=== PATIENT | male | born 1970 | race Caucasian/White ===

== ENCOUNTER → 2016-07-21 | Outpatient (CLI) | payer BC ==
[~2016-07-21] MED LIST: FEXO5TAB2 PO; FLUT110A INH; HYDR-5688 PO; MOME50SP5; MULT-506 PO
--- NOTE | 2016-07-21 12:02 | DIAGNOSTIC IMAGING REPORT ---
LEFT RIBS UNILATERAL WITH PA CHEST CLINICAL HISTORY: R07.89 Chest wall painD16.9 Chondroma RAD Left pain COMPARISON STUDY: CT chest dated 11/29/2013 FINDINGS: Unchanged healed fracture left seventh rib. Prior resection left eighth and ninth ribs. No acute bony abnormality. Lungs are considered clear. IMPRESSION: Stable evaluation of left ribs compared to the prior chest CT evaluation of 11/29/2013. No new or interval finding. Electronically signed by: Russell Cannon M.D. 07/21/2016 12:01 PM Dictated Date/Time: 07/21/2016 11:56 AM
== END | disposition home or self-care (01) ==
LOC: C.RAD1850 10:57
PROVIDERS: ATTEND Nurse Practitioner Family
DX: D16.9 Benign neoplasm of bone and articular cartilage, unspecified (principal); R07.89 Other chest pain

== ENCOUNTER 2024-06-03 04:52 | Inpatient (IN) ==
--- NOTE | 2024-06-03 05:14 | Emergency Department Note ---
History of Present Illness General Chief complaint: Shortness of Breath/Dyspnea Stated complaint: DIAGNOSED WITH PNEUMONIA ON MONDAY,SOB,WHEEZING Time Seen by Provider: 06/03/24 05:06 History of Present Illness Maximum Pain Intensity: 8 This 53-year-old male that smokes presents ER for worsening cold symptoms and shortness of breath who was diagnosed with pneumonia 1 week ago by the PCP. He was originally placed on Zithromax and switched to cefpodoxime and prednisone. Patient states his breathing is getting worse which prompted him to come the ER. No documented temperature. Patient denies abdominal pain, vomiting, diarrhea, history of heart failure. Home Medications Medication Instructions Recorded Confirmed Type multivitamin (Daily Multi-Vitamin 1 tab PO DAILY 08/10/18 05/29/24 History tablet) fexofenadine 180 mg tablet 180 mg PO DAILY Allergic Rhinitis 06/03/20 05/29/24 Rx #90 tabs cyclobenzaprine 10 mg tablet See Rx Instructions .Route 03/17/22 05/29/24 Rx .COMPLEX #20 tabs olmesartan 20 mg tablet 20 mg PO QAM 02/15/24 05/29/24 History albuterol sulfate 90 mcg/actuation See Rx Instructions inhalation 04/29/24 05/29/24 Rx aerosol inhaler .COMPLEX PRN shortness of breath or wheezing #18 grams dextroamphetamine-amphetamine 10 10 mg PO BID #60 tabs 04/29/24 05/29/24 Rx mg tablet fluticasone propionate 50 1 - 2 spray intranasal DAILY PRN 04/29/24 05/29/24 Rx mcg/actuation nasal nasal congestion #16 grams spray,suspension hydrocodone 10 mg-acetaminophen 1 tab PO Q12H PRN Chest wall pain 04/29/24 05/29/24 Rx 325 mg tablet #60 tabs azithromycin 250 mg tablet See Rx Instructions PO .COMPLEX #6 05/29/24 05/29/24 Rx tabs cefpodoxime 200 mg tablet 200 mg PO Q12H 10 days #20 tabs 05/29/24 05/29/24 Rx prednisone 10 mg tablet See Rx Instructions PO DAILY #40 05/29/24 05/29/24 Rx tabs Allergies Allergy/AdvReac Type Severity Reaction Status Date / Time erythromycin base Allergy Unknown SEVERE Verified 05/29/24 10:55 DIARRHEA AND UPSET STOMACH morphine Allergy Unknown SEVERE N/V Verified 05/29/24 10:55 amlodipine AdvReac Severe Panic and Verified 05/29/24 10:55 forgetfulness amoxicillin AdvReac Mild Nausea Verified 05/29/24 10:55 Past Med/Surg History Problem List (Updated 06/03/24 @ 06:24 by Litzy Galan PA-C) Acute heart failure (Acute) Pleural effusion (Acute) Elevated troponin (Acute) Lower back pain Lumbar degenerative disc disease Lumbar disc disease Chronic low back pain Attention deficit disorder Vitamin D deficiency (Acute) Vertigo (Acute) Somatic dysfunction of rib (Acute) Sinus tachycardia (Acute) Segmental and somatic dysfunction of upper extremity (Acute) Segmental and somatic dysfunction of thoracic region (Acute) Segmental and somatic dysfunction of lumbar region (Acute) Segmental and somatic dysfunction of abdomen and other regions (Acute) Right shoulder pain (Acute) Pelvic somatic dysfunction (Acute) Opioid dependence (Acute) Neuropathy, thoracic (radicular) (Acute) Insomnia (Acute) Hypertension (Acute) Deviated nasal septum (Acute) Depression with anxiety (Acute) Cranial somatic dysfunction (Acute) Chondroma (Acute) Chest wall pain (Acute) Cervical somatic dysfunction (Acute) Carpal tunnel syndrome (Acute) Asthma (Acute) Allergic rhinitis (Acute) Medical History History of tachycardia Hx of diverticulitis of colon Hx of migraines History of COVID-19 2021 ADD (attention deficit disorder) Depression with anxiety denies Asthma uses more with cold weather Hypertension Hx of vertigo Lumbar disc disease Surgical History History of colonoscopy History of esophagogastroduodenoscopy (EGD) Hx of 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 >[facility] [place] > 2005 > still has residual pain in that area as result > no chemo History of incision and drainage right knee S/P wisdom tooth extraction Family History Uncle Prostate cancer Mother Fibromyalgia Father Smoker Kidney disease Denies family history of Ovarian cancer Myocardial infarction Breast cancer Colorectal cancer Social History Smoking Status: Current every day smoker Tobacco Type: Cigarettes Age Started Using Tobacco: 22; packs per day: 0.5; Cigarettes Per Day: 1-2 cigs per day > advised npo; Second Hand Exposure: No; Do You Dip or Chew Tobacco: No; Hx Alcohol Use: Yes Alcohol type: hard liquor Hx Substance Use: Yes Last Used Substance Other:: last used in teen years Substance Use Type Other:: hx marijuana use as teen Preferred Language: Mozambican Communication Ability: Effective Visual Impairment: No Limitations Hearing Ability: Normal Customer Services Manager Required: No Beliefs That Will Affect Care: None marital status: Current Living Situation: Family current occupational status: employed 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 Feels Safe at Home: Yes Childhood Exposure to Second-Hand Smoke: Yes Diet: regular Dental Care, Regularly: Yes Physical Activity Frequency: 1-2 Times per Week Seatbelt Use: always Sunscreen Use: Yes Assistive Devices: Glasses Review of Systems A total of 10 systems reviewed and were otherwise negative Physical Exam Vital Signs Vital Signs - 24 hr 06/03/24 04:56 06/03/24 05:10 06/03/24 05:10 Temperature 36.3 C L Temperature Source Oral Pulse Rate 107 H Pulse Rate [Right Finger] Pulse Rhythm Respiratory Rate 20 Respiratory Effort / Characteristics Non-Labored Spontaneous Respiratory Depth Normal Respiratory Pattern Regular Blood Pressure 154/104 H Blood Pressure [Right Arm] Blood Pressure Mean 120 Blood Pressure Mean [Right Arm] Blood Pressure Position [Right Arm] Pulse Oximetry 94 Oxygen Delivery Method Room Air Room Air Room Air Oxygen Flow Rate Sepsis Recent Fever Within 48 Hours Yes Sepsis New/Unexplained Change in Mental Status No Sepsis Action Taken by Nursing No Action Required 06/03/24 05:10 06/03/24 05:10 06/03/24 05:37 Temperature Temperature Source Pulse Rate 110 H 102 H Pulse Rate [Right Finger] 100 H Pulse Rhythm Regular Respiratory Rate 20 20 Respiratory Effort / Characteristics Non-Labored Spontaneous Respiratory Depth Normal Respiratory Pattern Regular Blood Pressure Blood Pressure [Right Arm] 124/104 H Blood Pressure Mean Blood Pressure Mean [Right Arm] 110 Blood Pressure Position [Right Arm] Lying Pulse Oximetry 92 97 Oxygen Delivery Method Room Air Room Air Oxygen Flow Rate Sepsis Recent Fever Within 48 Hours Sepsis New/Unexplained Change in Mental Status Sepsis Action Taken by Nursing 06/03/24 06:50 Temperature Temperature Source Pulse Rate Pulse Rate [Right Finger] 112 H Pulse Rhythm Respiratory Rate 20 Respiratory Effort / Characteristics Non-Labored Spontaneous Respiratory Depth Normal Respiratory Pattern Regular Blood Pressure Blood Pressure [Right Arm] 138/116 H Blood Pressure Mean Blood Pressure Mean [Right Arm] 123 Blood Pressure Position [Right Arm] Lying Pulse Oximetry 95 Oxygen Delivery Method Nasal Cannula Oxygen Flow Rate 2 Sepsis Recent Fever Within 48 Hours Sepsis New/Unexplained Change in Mental Status Sepsis Action Taken by Nursing VITALS: Vitals are noted on the nurse's note and reviewed by myself. Vital signs reviewed. GENERAL: White male speaking in full sentences with present, in no acute distress, nondiaphoretic, well-developed well-nourished. SKIN: The skin was without rashes, erythema, edema, or bruising. There is no tenting of the skin. Capillary reflex less than 2 seconds. HEAD: Normocephalic atraumatic. EARS: External auditory canals clear EYES: Pupils equal round and reactive to light and accommodation. Conjunctivae without injection, sclerae without icterus. Extraocular movements intact. NOSE: Patent, no discharge. MOUTH: Mucous membranes moist. Pharynx without erythema or exudate. Uvula midline. Airway patent. Tongue does not deviate. NECK: Supple without nuchal rigidity. No lymphadenopathy. No thyromegaly. Cervical spine is nontender. No JVD. HEART: Regular rate and rhythm LUNGS: Mild diffuse and expiratory wheezes. No retractions or accessory muscle use. ABDOMEN: Positive bowel sounds x 4. Normal tympanic percussion. Soft, nontender, without masses or organomegaly. Arzola sign negative. No guarding or rebound tenderness. No CVA tenderness MUSCULOSKELETAL: No muscle atrophy, erythema, or edema noted. NEURO: Patient was alert and oriented to person place and time. Normal sensation to light and sharp touch. No focal neurological deficits. Course Administered Medications Discontinued Medications Albuterol (Albut/Ipratrop 3mg/0.5mg Neb 3 Ml Vial) 3 ml NEB NOW STA; Protocol Stop: 06/03/24 05:11 Last Admin: 06/03/24 05:39 Dose: 3 ml Documented By: JD Ceftriaxone Sodium (Rocephin) 2,000 mg in 50 mls @ 100 mls/hr IV NOW STA Stop: 06/03/24 06:34 Last Admin: 06/03/24 06:23 Dose: 100 mls/hr Documented By: PAG Ioversol (Optiray 320 125ml) 119 ml IV ONCE ONE Stop: 06/03/24 05:56 Last Admin: 06/03/24 05:56 Dose: 119 ml Documented By: PK Medical Decision Making Medical Records Attestation: I reviewed the patient's medical records. Home Medications Current Medication List: was personally reviewed by me Laboratory Data Attestation: I reviewed the patient's lab results. 06/03/24 05:20 06/03/24 05:20 Lab Results 06/03/24 06/03/24 Range/Units 05:20 05:26 WBC 11.81 H (4.8-10.8) K/ul RBC 5.42 (4.70-6.10) M/uL Hgb 16.2 (14.0-18.0) g/dl POC Hgb 16.3 (14.0-18.0) g/dl Hct 47.9 (42.0-52.0) % POC Hct 48 (42-52) % MCV 88.4 (80.0-100.0) fL MCH 29.9 (25.0-34.0) pg MCHC 33.8 (32.0-36.0) g/dL RDW Std Deviation 42.4 (36.4-46.3) fL RDW Coeff of Od[place] 13.1 (11.5-14.5) % Plt Count 244 (130-400) K/uL MPV 11.7 (9.4-12.4) fL Immature Gran % (Auto) 0.6 % Neut % (Auto) 83.4 % Lymph % (Auto) 10.4 % Cascade % (Auto) 4.8 % Eos % (Auto) 0.5 % Baso % (Auto) 0.3 % Neut # (Auto) 9.85 H (1.40-6.50) K/uL Lymph # (Auto) 1.23 (1.20-3.40) K/uL Cascade # (Auto) 0.57 (0.11-0.59) K/uL Eos # (Auto) 0.06 (0.00-0.50) K/uL Baso # (Auto) 0.03 (0.00-0.20) K/uL Immature Gran # (Auto) 0.07 (0.01-0.20) K/uL POC Sodium 141 (135-144) mmol/L Sodium 139 (136-145) mmol/L POC Potassium 4.1 (3.3-5.0) mmol/L Potassium 4.2 (3.5-5.1) mmol/L POC Chloride 102 (101-112) mmol/L Chloride 107 (98-107) mmol/L Carbon Dioxide 29 (21-32) mmol/L POC Total CO2 24 (24-31) mmol/L Anion Gap 3 (3-11) POC Anion Gap 20.0 (16-25) mmol/L POC BUN 14 (7-18) mg/dl BUN 15 (6-23) mg/dl Creatinine 0.79 (0.6-1.4) mg/dl POC Creatinine 0.9 (0.6-1.3) mg/dl Est Cr Clr Drug Dosing 133.6 ml/min eGFR 107.56 BUN/Creatinine Ratio 19.0 (10-20) Glucose 94 (70-99(Fasting)) mg/dl POC Glucose (other) 92 (70-99) mg/dl Calcium 8.6 (8.6-10.3) mg/dl POC Ioniz Calcium Eh 1.15 (1.12-1.32) mmol/l Magnesium 2.0 (1.7-2.4) mg/dl Total Bilirubin 1.1 H (0.2-1.0) mg/dl AST 18 (13-39) U/L ALT 35 (7-52) U/L Alkaline Phosphatase 57 (34-104) U/L Troponin I High Sens 32.8 H (0-20) pg/ml B-Natriuretic Peptide 567 H (0-100) pg/ml Total Protein 6.5 (6.0-8.3) gm/dl Albumin 3.9 (3.4-5.0) gm/dl Globulin 2.6 (2.5-4.0) gm/dl Albumin/Globulin Ratio 1.5 (0.9-2) Imaging Data Attestation: I personally reviewed and interpreted this imaging study as follows: Radiologist's Impression: Chest CTA 06/03/24 05:10 EXAM: CT angio chest PE protocol CLINICAL HISTORY: Dyspnea TECHNIQUE: Contiguous axial images were obtained from the neck base through the upper abdomen following intravenous administration of iodinated contrast material. Angiographic images were processed, 3D MIP images were acquired for interpretation. If IV contrast material had not been administered, the likelihood of detecting abnormalities relevant to the patient's condition would have been substantially decreased. Coronal and sagittal 3-D MIPs were likewise performed and indicated to increase the sensitivity of detectin diffuse clinically relevant pathology. CT scan was performed according to ALARA (as low as reasonable achievable). COMPARISON: None. FINDINGS: Mild bilateral pleural effusion with basal subsegmental collapse of both lower lobes are seen Diffuse smooth interlobular septal thickening are noted involving bilateral lungs - suggestive of pulmonary congestion Adequate contrast bolus without evidence of pulmonary embolism. The central airways are patent. Rest of lungs are clear. The heart, aorta, and pulmonary arteries are of normal size and configuration. There are coronary artery and aortic atherosclerotic calcifications. No pericardial effusion is identified. The thyroid is unremarkable. No mediastinal, hilar, or axillary lymphadenopathy is noted. No suspicious lytic or sclerotic osseous lesions are identified. IMPRESSION: 1. No evidence of pulmonary embolism 2. Mild bilateral pleural effusion with basal subsegmental collapse of both lower lobes are seen 3. Diffuse smooth interlobular septal thickening are noted involving bilateral lungs - suggestive of pulmonary congestion Electronically signed by Bhargav Arzate 06-03-2024 06:45 AM MDM Narrative Prior records/ancillary studies reviewed. Triage Nursing notes reviewed. Additional history obtained from the family. The patient's history was concerning for respiratory difficulties. Differential diagnosis: Etiologies such as infections, reactive airway disease, pneumonia, pneumothorax, COPD, CHF, cardiac ischemia, pulmonary embolism, musculoskeletal, gastrointestinal, as well as others were entertained. Physical examination: As above. ER treatment provided: An order was placed for continuous cardiac monitoring. The monitor shows a rate of 60-100 with a sinus rhythm per my interpretation. Nebulizer, IV fluids, Rocephin for pneumonia Lasix was ordered for fluid overload On reassessment the patient felt better. Diagnostic interpretation by me: #1 the electrocardiogram was ordered for SOB. ECG: Normal sinus, left axis, no acute ST-T wave changes, rate of 105. Impression normal sinus rhythm with a left axis deviation independently interpreted by myself #2 EKG ordered for positive troponin EKG: Normal sinus, occasional PVC, T wave inversion aVL, rate of 97. Left axis. Impression normal sinus rhythm T wave version aVL independently interpreted by myself The labs Independently Interpreted by myself revealed slightly elevated troponin. Mild leukocytosis, mostly related to prednisone use, stable H&H Elevated BNP Imaging studies: Imaging was reviewed and read by radiology Consultation: A consultation was placed with the hospitalist. The case was discussed and diagnostics were reviewed. The patient was evaluated in the ER for further treatment. HEART SCORE: Hx: high/mod/low suspicion: 0 ECG: ST depression/nonspecific changes/normal: 1 Age: Greater than 65/45-64/less than 45: 1 Risk factors: (Hypertension, hyperlipidemia, diabetes, coronary disease, tobacco use, cocaine use): 2 Troponin: Greater than 2 times normal limits/1-2 times normal limits/normal: 1 Total: 5 This appears to be consistent with heart failure with a positive troponin with concerns for possible pneumonia. EKG was nonischemic. First troponin slightly elevated most likely type II. Medicine was consulted case discussed. He will be evaluated for possible admission. By the evaluation outlined above emergent etiologies such as pulmonary embolism, reactive airway disease, pneumothorax, musculoskeletal, serious bacterial infections, as well as others were deemed relatively unlikely. The pt informed about the findings as listed above. All questions were answered and pleased with the treatment. Case signed out to oncoming provider pending CAT scan and reevaluation in stable condition. The chart was completed utilizing [employer] Speech voice recognition software. Grammatical errors, random word insertions, pronoun errors, and incomplete sentences are an occassional consequence of this system due to software limitations, ambient noise, and hardware issues. Any formal questions or concerns about the content, text, or information contained within the body of this dictation should be directly addressed to the physician events and promotions assistant for clarification. Impression & Plan Acute heart failure, Elevated troponin, Pleural effusion Discharge Plan Visit Data Chief Complaint: Shortness of Breath/Dyspnea Stated Complaint: DIAGNOSED WITH PNEUMONIA ON MONDAY,SOB,WHEEZING ED Provider: Mary Rich ED Midlevel Provider: Litzy Galan Discharge Problem: Acute heart failure, Elevated troponin, Pleural effusion Patient Disposition: Admitted As Inpatient Condition: Good Forms Stand Alone Forms: My [employer] Prescriptions Prescriptions: No Action cyclobenzaprine 10 mg tablet See Rx Instructions .ROUTE .COMPLEX Qty: 20 0RF Dose Instruction: TAKE 1 TABLET BY MOUTH THREE TIMES DAILY NEEDED for chest wall pain Rx Instructions: TAKE 1 TABLET BY MOUTH THREE TIMES DAILY NEEDED for chest wall pain fluticasone propionate 50 mcg/actuation spray,suspension 1 - 2 spray intranasal DAILY PRN (Reason: nasal congestion) Qty: 16 0RF albuterol sulfate 90 mcg/actuation HFA aerosol inhaler See Rx Instructions INH .COMPLEX PRN (Reason: shortness of breath or wheezing) Qty: 18 1RF Rx Instructions: 1-2 puffs inhalation Q 4-6 hrs PRN; hydrocodone-acetaminophen 10-325 mg tablet 1 tab PO Q12H PRN (Reason: Chest wall pain) Qty: 60 0RF dextroamphetamine-amphetamine 10 mg tablet 10 mg PO BID Qty: 60 0RF multivitamin [Daily Multi-Vitamin] tablet 1 tab PO DAILY fexofenadine 180 mg tablet 180 mg PO DAILY Qty: 90 1RF azithromycin 250 mg tablet See Rx Instructions PO .COMPLEX Qty: 6 0RF Rx Instructions: For 250 mg dose pack: take 500 mg today (day 1), then 250 mg for 4 days (days 2-5) PO prednisone 10 mg tablet See Rx Instructions PO DAILY Qty: 40 0RF Rx Instructions: 4 tabs for 4 days, then 3 tabs for 4 days, then 2 tabs for 4 days, then 1 tab for 4 days. PO DAILY; cefpodoxime 200 mg tablet 200 mg PO Q12H 10 Days Qty: 20 0RF Rx Instructions: must administer with a meal/food olmesartan 20 mg tablet 20 mg PO QAM Referrals Referrals: Bhargav Mcmillan DO [Primary Care Provider] - Discharge Problem: Acute heart failure Qualifiers: Heart failure type: unspecified Qualified Code(s): I50.9 - Heart failure, unspecified
[2024-06-03 05:39] LABS: iSTAT Creatinine 0.9 mg/dl (0.6-1.3); iSTAT Hemoglobin 16.3 g/dl (14.0-18.0); iSTAT Ionized Calcium 1.15 mmol/l (1.12-1.32); iSTAT Potassium 4.1 mmol/L (3.3-5.0)
[2024-06-03] MEDS: ALBUT/IPRATROP 3MG/0.5MG NEB 3 ML VIAL NEB STA (05:39)
[2024-06-03 05:40] LABS: Basophils # (auto) 0.03 K/uL (0.00-0.20); Basophils % (auto) 0.3 %; Eosinophils # (auto) 0.06 K/uL (0.00-0.50); Eosinophils % (auto) 0.5 %; Hematocrit (blood only) 47.9 % (42.0-52.0); Hemoglobin 16.2 g/dl (14.0-18.0); Immature Granulocytes # (auto) 0.07 K/uL (0.01-0.20); Immature Granulocytes % (auto) 0.6 %; Lymphocytes # (auto) 1.23 K/uL (1.20-3.40); Lymphocytes % (auto) 10.4 %; Mean Corpuscular Hemoglobin 29.9 pg (25.0-34.0); Mean Corpuscular Hgb Conc 33.8 g/dL (32.0-36.0); Mean Corpuscular Volume 88.4 fL (80.0-100.0); Mean Platelet Volume 11.7 fL (9.4-12.4); Monocytes # (auto) 0.57 K/uL (0.11-0.59); Monocytes % (auto) 4.8 %; Neutrophils # (auto) 9.85 K/uL (1.40-6.50); Neutrophils % (auto) 83.4 %; Platelet Count 244 K/uL (130-400); RDW Coefficient of Variation 13.1 % (11.5-14.5); RDW Standard Deviation 42.4 fL (36.4-46.3); Red Blood Count 5.42 M/uL (4.70-6.10); White Blood Count 11.81 K/ul (4.8-10.8)
[2024-06-03] MEDS: OPTIRAY 320 125ml IV ONE (05:56)
[2024-06-03 05:58] LABS: Albumin Globulin Ratio 1.5 (0.9-2); Albumin Level 3.9 gm/dl (3.4-5.0); Bilirubin,Total 1.1 mg/dl (0.2-1.0); Calcium 8.6 mg/dl (8.6-10.3); Creatinine Clr Calc Pharmacy 133.6 ml/min; Globulin 2.6 gm/dl (2.5-4.0); Potassium 4.2 mmol/L (3.5-5.1); Total Protein 6.5 gm/dl (6.0-8.3)
[2024-06-03 06:05] LABS: Troponin I High Sensitivity 32.8 pg/ml (0-20)
[2024-06-03] MEDS: cefTRIAXone SODIUM 2,000 MG/50 ML BAG IV STA (06:23)
--- NOTE | 2024-06-03 06:45 | CT Scan Report ---
EXAM: CT angio chest PE protocol CLINICAL HISTORY: Dyspnea TECHNIQUE: Contiguous axial images were obtained from the neck base through the upper abdomen following intravenous administration of iodinated contrast material. Angiographic images were processed, 3D MIP images were acquired for interpretation. If IV contrast material had not been administered, the likelihood of detecting abnormalities relevant to the patient's condition would have been substantially decreased. Coronal and sagittal 3-D MIPs were likewise performed and indicated to increase the sensitivity of detectin diffuse clinically relevant pathology. CT scan was performed according to ALARA (as low as reasonable achievable). COMPARISON: None. FINDINGS: Mild bilateral pleural effusion with basal subsegmental collapse of both lower lobes are seen Diffuse smooth interlobular septal thickening are noted involving bilateral lungs - suggestive of pulmonary congestion Adequate contrast bolus without evidence of pulmonary embolism. The central airways are patent. Rest of lungs are clear. The heart, aorta, and pulmonary arteries are of normal size and configuration. There are coronary artery and aortic atherosclerotic calcifications. No pericardial effusion is identified. The thyroid is unremarkable. No mediastinal, hilar, or axillary lymphadenopathy is noted. No suspicious lytic or sclerotic osseous lesions are identified. IMPRESSION: 1. No evidence of pulmonary embolism 2. Mild bilateral pleural effusion with basal subsegmental collapse of both lower lobes are seen 3. Diffuse smooth interlobular septal thickening are noted involving bilateral lungs - suggestive of pulmonary congestion Electronically signed by Bhargav rAzate 06-03-2024 06:45 AM
[2024-06-03] MEDS: ACETAMINOPHEN 1,000 MG/100 ML VIAL IV STA (07:09)
[2024-06-03] MEDS: FUROSEMIDE 40 MG/4 ML VIAL IV ONE (07:09)
--- NOTE | 2024-06-03 08:03 | History & Physical Report ---
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 # Pneumonia, pt will be on cetriaxone and doxycycline, negative respiratory biofire, blood cultures obtained, will add Mucinex and flutter valve to help with expectoration given concern for collapse of the lower lobe on CT scan # Heart failure, unknown type, will have Echo, elevated troponin, will trend, one dose of Lasix given in the ER, BNP is elevated emergency department # Chronic back pain and somatization disorder, will continue Hydrocortisone, a lot of his pain came about from his car and drove sarcoma treatment which was w ith removal of subcostal cartilage in his chest and subsequently persistent pain since that time dvt prevention with lovenox History of Present Illness Primary Care Provider: Bhargav Mcmillan, DO 53-year-old male that smokes presents ER for worsening cold symptoms and shortness of breath who was diagnosed with pneumonia 1 week ago by the PCP. He was originally placed on Zithromax and switched to cefpodoxime and prednisone. Patient states his breathing is getting worse which prompted him to come the ER. No documented temperature. He has an abnormal CT scan presentation consistent with infectious etiology of the lung BioFire test is negative Patient states has been short of breath for few months perhaps dating back to March. Patient started a new job in February. Patient also has a history of smoking but stopped smoking in February when he got his new job. Patient denies any direct coupling of his shortness of breath with some chest discomforts which he describes as a pounding in his chest. He has had no nausea he has had diaphoresis which he feels has been over the last 2 days and associated with more infectious symptoms such as production of sputum. He has had no lower extremity edema does not have significant orthopnea Allergies Allergy/AdvReac Type Severity Reaction Status Date / Time erythromycin base Allergy Unknown SEVERE Verified 05/29/24 10:55 DIARRHEA AND UPSET STOMACH morphine Allergy Unknown SEVERE N/V Verified 05/29/24 10:55 amlodipine AdvReac Severe Panic and Verified 05/29/24 10:55 forgetfulness amoxicillin AdvReac Mild Nausea Verified 05/29/24 10:55 Home Medications Medication Instructions Recorded Confirmed Type multivitamin (Daily Multi-Vitamin 1 tab PO DAILY 08/10/18 06/03/24 History tablet) fexofenadine 180 mg tablet 180 mg PO DAILY Allergic Rhinitis 06/03/20 06/03/24 Rx #90 tabs olmesartan 20 mg tablet 20 mg PO QAM 02/15/24 06/03/24 History albuterol sulfate 90 mcg/actuation See Rx Instructions inhalation 04/29/24 06/03/24 Rx aerosol inhaler .COMPLEX PRN shortness of breath or wheezing #18 grams dextroamphetamine-amphetamine 10 10 mg PO BID #60 tabs 04/29/24 06/03/24 Rx mg tablet fluticasone propionate 50 1 - 2 spray intranasal DAILY PRN 04/29/24 06/03/24 Rx mcg/actuation nasal nasal congestion #16 grams spray,suspension hydrocodone 10 mg-acetaminophen 1 tab PO Q12H PRN Chest wall pain 04/29/24 06/03/24 Rx 325 mg tablet #60 tabs azithromycin 250 mg tablet See Rx Instructions PO .COMPLEX #6 05/29/24 06/03/24 Rx tabs cefpodoxime 200 mg tablet 200 mg PO Q12H 10 days #20 tabs 05/29/24 06/03/24 Rx prednisone 10 mg tablet See Rx Instructions PO DAILY #40 05/29/24 06/03/24 Rx tabs cyclobenzaprine 10 mg tablet 10 mg PO UD PRN Pain 06/03/24 06/03/24 History Past Med/Surg History Problem List (Updated 06/03/24 @ 08:25 by Jonathan Ring MD) Pneumonia Acute heart failure (Acute) Pleural effusion (Acute) Elevated troponin (Acute) Lower back pain Lumbar degenerative disc disease Lumbar disc disease Chronic low back pain Attention deficit disorder Vitamin D deficiency (Acute) Vertigo (Acute) Somatic dysfunction of rib (Acute) Sinus tachycardia (Acute) Segmental and somatic dysfunction of upper extremity (Acute) Segmental and somatic dysfunction of thoracic region (Acute) Segmental and somatic dysfunction of lumbar region (Acute) Segmental and somatic dysfunction of abdomen and other regions (Acute) Right shoulder pain (Acute) Pelvic somatic dysfunction (Acute) Opioid dependence (Acute) Neuropathy, thoracic (radicular) (Acute) Insomnia (Acute) Hypertension (Acute) Deviated nasal septum (Acute) Depression with anxiety (Acute) Cranial somatic dysfunction (Acute) Chondroma (Acute) Chest wall pain (Acute) Cervical somatic dysfunction (Acute) Carpal tunnel syndrome (Acute) Asthma (Acute) Allergic rhinitis (Acute) Medical History History of tachycardia Hx of diverticulitis of colon Hx of migraines History of COVID-19 2021 ADD (attention deficit disorder) Depression with anxiety denies Asthma uses more with cold weather Hypertension Hx of vertigo Lumbar disc disease Surgical History History of colonoscopy History of esophagogastroduodenoscopy (EGD) Hx of 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 >[facility] [place] 2005 > still has residual pain in that area as result > no chemo History of incision and drainage right knee S/P wisdom tooth extraction Family History Uncle Prostate cancer Mother Fibromyalgia Father Smoker Kidney disease Denies family history of Ovarian cancer Myocardial infarction Breast cancer Colorectal cancer Social History Smoking Status: Current every day smoker Tobacco Type: Cigarettes Age Started Using Tobacco: 22; packs per day: 0.5; Cigarettes Per Day: 2; Second Hand Exposure: No; Do You Dip or Chew Tobacco: No; Hx Alcohol Use: Yes Alcohol type: hard liquor Hx Substance Use: No Preferred Language: Macedonian Communication Ability: Effective Visual Impairment: No Limitations Hearing Ability: Normal Order Entry Technician Required: No Beliefs That Will Affect Care: None marital status: Current Living Situation: Spouse current occupational status: employed 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 Feels Safe at Home: Yes Safety Concerns: Feels Safe At This Time Childhood Exposure to Second-Hand Smoke: Yes Diet: regular Dental Care, Regularly: Yes Physical Activity Frequency: 1-2 Times per Week Seatbelt Use: always Sunscreen Use: Yes Assistive Devices: Glasses Review of Systems Review of Systems: Mild to moderate distress and fatigue no headache, no visual changes no speech or swallowing issues Chest pain described as a pounding not as a pressure Dyspnea on exertion with coughing productive of sputum no abdominal pain, nausea or vomiting, diarrhea or constipation no dysuria, hematuria or frequency no focal joint pain or swelling no back pain, CVA tenderness or radicular pain no bruising, bleeding or rashes no focal signs of weakness or numbness or altered sensation no complaints of anxiety or depression.. Physical Exam Physical Exam: The patient appeared well nourished and normally developed. Vital signs as documented. Head exam is normocephalic atraumatic Neck is without JVD, thyromegaly, or carotid bruits. Lungs are diminished in the left lower lobe with rhonchi above Cardiac exam, Rhythm is regular.. No murmurs, rubs or gallops. Abdominal exam reveals normal bowel sounds, soft non tender, no masses Extremities are nonedematous and both pedal pulses are present Neurologic exam is alert and oriented, no focal loss of strength or sensation Skin is without bruises or rashes Psychologically is without concerns for anxiety or depression.. Results & Data Results & Data Vital Signs (Past 12 Hours) Vital Signs Temp Pulse Pulse Resp BP BP Pulse Ox 06/03/24 07:54 98 H 16 138/99 97 06/03/24 07:04 98 06/03/24 07:04 110 H 20 158/118 H 92 06/03/24 06:50 112 H 20 138/116 H 95 06/03/24 05:37 102 H 06/03/24 05:10 110 H 20 97 06/03/24 05:10 100 H 20 124/104 H 92 06/03/24 05:10 06/03/24 05:10 06/03/24 04:56 97.3 F L 107 H 20 154/104 H 94 O2 Del Method O2 Flow Rate 06/03/24 07:54 Room Air 06/03/24 07:04 Nasal Cannula 2 06/03/24 07:04 Nasal Cannula 2 06/03/24 06:50 Nasal Cannula 2 06/03/24 05:37 06/03/24 05:10 Room Air 06/03/24 05:10 Room Air 06/03/24 05:10 Room Air 06/03/24 05:10 Room Air 06/03/24 04:56 Room Air Laboratory Results Reviewed CBC reviewed chemistry PG Care Time/CCT Total # of Minutes Spent Total Time Spent with Patient: Total time spent is greater than 50% in coordination of care (as documented) at patient's floor/unit and/or counseling patient: Coding Level of Care Code 58605 INT INP/OBS CARE MIN Diagnoses Pneumonia J18.9 Acute heart failure I50.9 Heart failure type: unspecified Chronic low back pain M54.5; G89.29 Attention deficit hyperactivity disorder (ADHD), combined type F90.2 Attention deficit-hyperactivity disorder type: combined inattentive- hyperactive Hyperactivity presence: present (2) Acute heart failure Heart failure type: unspecified Qualified Code(s): I50.9 - Heart failure, unspecified (4) Attention deficit disorder Attention deficit-hyperactivity disorder type: combined inattentive- hyperactive Hyperactivity presence: present Qualified Code(s): F90.2 - Attention-deficit hyperactivity disorder, combined type
[2024-06-03 09:44] LABS: Adenovirus PCR Not Detected (NotDetected); Bordetella parapertussis PCR Not Detected (NotDetected); Bordetella pertussis PCR Not Detected (NotDetected); Chlamydia pneumoniae PCR Not Detected (NotDetected); Coronavirus 229E PCR Not Detected (NotDetected); Coronavirus CoV-2 (COVID19)PCR Not Detected (NotDetected); Coronavirus HKU1 PCR Not Detected (NotDetected); Coronavirus NL63 PCR Not Detected (NotDetected); Coronavirus OC43PCR Not Detected (NotDetected); Human Metapneumovirus PCR Not Detected (NotDetected); Influenza A PCR Not Detected (NotDetected); Influenza B PCR Not Detected (NotDetected); Mycoplasma pneumoniae PCR Not Detected (NotDetected); Parainfluenza Virus 1 PCR Not Detected (NotDetected); Parainfluenza Virus 2 PCR Not Detected (NotDetected); Parainfluenza Virus 3 PCR Not Detected (NotDetected); Parainfluenza Virus 4 PCR Not Detected (NotDetected); Respiratory Syncytial VirusPCR Not Detected (NotDetected); Rhinovirus/Enterovirus PCR Not Detected (NotDetected)
[2024-06-03] MEDS ORDERED: ALUMINUM/MAGNESIUM SUSP 30 ML UDC PO PRN (12:13)
[2024-06-03] MEDS ORDERED: CYCLOBENZAPRINE HCL 10 MG TAB PO PRN (12:13)
[2024-06-03] MEDS ORDERED: ALBUTEROL HFA 8 GM INHALER INH PRN (12:13)
[2024-06-03] MEDS ORDERED: ONDANSETRON INJ 2 MG/ML 2 ML VIAL IV PRN (12:13)
[2024-06-03] MEDS ORDERED: FLUTICASONE PROPIONATE NA SPR 16 GM BTL PRN (12:13)
[2024-06-03] MEDS: LOSARTAN POTASSIUM 50 MG TAB PO SCH (12:32)
[2024-06-03] MEDS: MULTIVITAMIN TAB PO SCH (12:32)
[2024-06-03] MEDS: FEXOFENADINE HCL 180 MG TAB PO SCH (12:32)
--- NOTE | 2024-06-03 15:04 | XCELERA ---
[id number]
[2024-06-03] MEDS: POTASSIUM CHLORIDE CRTAB 20 MEQ TABCR PO STA (17:00)
[2024-06-03] MEDS ORDERED: methylPREDNISolone 125 MG/2 ML VIAL IV SCH (21:00)
[2024-06-03] MEDS: guaiFENesin 600 MG TABCR PO SCH (21:34)
[2024-06-03] MEDS: FUROSEMIDE 40 MG/4 ML VIAL IV SCH (21:36)
[2024-06-03] MEDS: methylPREDNISolone 40 MG in SYRINGE 0 ML IV SCH (21:38)
[2024-06-03] MEDS: DOXYCYCLINE HYCLATE 100 MG in DEXTROSE 5% MINI-B 100 ML IV SCH (21:41)
[2024-06-04 07:38] LABS: BUN Creatinine Ratio 21.2 (10-20); Calcium 9.2 mg/dl (8.6-10.3); Creatinine Clr Calc Pharmacy 112.8 ml/min; Potassium 4.2 mmol/L (3.5-5.1)
[2024-06-04 07:45] LABS: Troponin I High Sensitivity 18.5 pg/ml (0-20)
--- NOTE | 2024-06-04 07:49 | Hospitalist Progress Note ---
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 Echo shows profoundly depressed EF, will have cardiology work up # Heart failure, unknown type, depressed EF confirmed by Echo, elevated troponin but not in range to be concerned for ACS, will need diuresis for HFrEF and have cardiology eval for left heart cath 06/05, started on GBMT metoprolol and Entresto # Pneumonia, pt will be on ceftriaxone and doxycycline, negative respiratory biofire, blood cultures obtained, did add Mucinex and flutter valve to help with expectoration given concern for collapse of the lower lobe on CT scan # Chronic back pain and somatization disorder, will continue Hydrocortisone, a lot of his pain came about from his car and drove sarcoma treatment which was with removal of subcostal cartilage in his chest and subsequently persistent pain since that time dvt prevention with lovenox Admission and Anticipated Discharge Date Admission Date: June 03, 2024 Subjective pt has not complaints, laying flat, no respiratory distress did want to leave [facility] and wanted to come back for [facility], informed that it doesnt work that way, and that he is taking a bit of a risk to leave, he said he would stay but wanted to go outside, he will need to go off monitor but the risk outweighs the reward given he will stay for work up of new found cardiomyopathy Physical Exam Physical Exam: cardiac is regular diminished at the bases otherwise clear Results & Data Results & Data Vital Signs (Past 12 Hours) Vital Signs Temp Pulse Resp BP BP Pulse Ox O2 Del Method 06/04/24 07:15 97.7 F 94 H 20 134/73 94 Room Air 06/04/24 02:47 98.2 F 108 H 18 123/77 96 Room Air 06/03/24 23:41 98.2 F 98 H 17 130/92 95 Room Air Laboratory Results review chem 7 review troponin PG Care Time/CCT Total # of Minutes Spent Total Time Spent with Patient: Total time spent is greater than 50% in coordination of care (as documented) at patient's floor/unit and/or counseling patient: Coding Level of Care Code 32961 SUB INP/OBS CARE MIN Diagnoses Pneumonia J18.9 Acute heart failure I50.9 Heart failure type: unspecified Chronic low back pain M54.5; G89.29 Attention deficit hyperactivity disorder (ADHD), combined type F90.2 Attention deficit-hyperactivity disorder type: combined inattentive- hyperactive Hyperactivity presence: present (2) Acute heart failure Heart failure type: unspecified Qualified Code(s): I50.9 - Heart failure, unspecified (4) Attention deficit disorder Attention deficit-hyperactivity disorder type: combined inattentive- hyperactive Hyperactivity presence: present Qualified Code(s): F90.2 - Attention-deficit hyperactivity disorder, combined type
[2024-06-04] MEDS: cefTRIAXone SODIUM 2,000 MG/50 ML BAG IV SCH (08:29)
[2024-06-04] MEDS: ENOXAPARIN INJ 40 MG/0.4 ML SYR SQ SCH (08:47)
[2024-06-04] MEDS: ACETAMINOPHEN 325 MG TAB PO PRN (08:52)
[2024-06-04] MEDS: HYDROcodone/ACETAMINOPHEN 10/325 TAB PO PRN (10:25)
[2024-06-04] MEDS: VALSARTAN/SACUBITRIL 26/24MG TAB PO SCH (11:54)
--- NOTE | 2024-06-04 13:18 | Cardiology Consultation ---
Date of Consultation June 04, 2024 Assessment & Plan (1) Cardiomyopathy: (2) Acute on chronic systolic CHF (congestive heart failure): (3) Pleural effusion: (4) Sinus tachycardia: (5) Hypertension: Plan Mr. Alanis is a 53 year old male with a history of Hypertension, ADD, Low Back Pain, Sinus Tachycardia, PVC's, Asthma, and Allergic Rhinitis who presented to his PCP and was diagnosed with Pneumonia and was started on antibiotics and a steroid. Patient admitted to the onset of exertional dyspnea dating back to February or March of 2024 when he also had decreased exertional tolerance. His exertional dyspnea progressed to the point that he was having occasional SOB at rest, and eventually developed orthopnea and PND. His symptoms all worsened over the past couple of weeks with his current respiratory tract infection. He has experienced chest soreness which he attributes to the increased work of breathing, however he has not had any exertional chest pain, heaviness, tightness, or pressure. He denies any exertional neck, jaw, back, or arm pain. His dyspnea is currently much improved from the time of admission. He is now able to lie down to sleep and has not had any further heart failure symptoms. He does admit to occasional palpitations but denies any consistently elevated heart rates. He denies any syncope or near-syncope. His BNP was elevated at 567 pg/mL. Chest CT consistent with pulmonary edema and small pleural effusions. Echocardiogram shows normal markedly diminished LV systolic function, LVEF 20% to 25%, septal motion consistent with IVCD, moderate mitral regurgitation, severe left atrial enlargement, grade 2 LV diastolic dysfu nction. Etiology of Cardiomyopathy is not yet known -- idiopathic vs ischemic vs tachycardia induced vs other. He does appear to be compensated from a heart failure standpoint. Recommend cardiac catheterization/coronary angiography to rule out ischemic heart disease. Recommend the followin. Heart cath, consider cardiac MRI. 2. SPEP/UPEP, BOUBACAR level, iron studies, H&H, TSH. 3. Begin guideline directed medical therapy. 4. Begin Metoprolol 50 mg b.i.d., convert to long-acting at discharge. 5. Stop losartan. 6. Start Entresto 24-26 mg b.i.d. 7. Start Farxiga 10 mg daily at the time of discharge. 8. Use loop diuretic and potassium supplement. 9. Recommend Zoll Lifevest x 90 days at the time of discharge. 10. Strict low sodium diet. 11. Monitor daily body weights. 12. Avoid tobacco/nicotine containing products Follow-up with [facility] Cardiology following discharge. Echocardiogram 3 to 6 month on maximal tolerated doses of medical therapy. Supervising Physician Co-Signing Physician Notes I have seen and examined this patient in conjunction with Jesus West PA-C. I have reviewed all available records and personally reviewed his echocardiogram. I have spoken to the patient regarding diagnostic coronary angiography which is scheduled to occur tomorrow. I have formulated a plan of care and discussed in detail with Mr. West. I agree with the assessment and plan as he has documented. We will proceed with catheterization tomorrow to determine the etiology of his cardiomyopathy. He seems euvolemic today and therefore should tolerate the procedure. He will then be discharged home if he does not require PCI or CABG. Optimized heart failure regimen and request for a "LifeVest" wearable defibrillator prior to discharge. Patient will then need to be seen in the cardiology office within 1 to 2 weeks of discharge. History of Present Illness Reason for Consultation: -- Cardiomyopathy. -- Systolic CHF. Requesting Physician: Jonathan Ring MD Attending Physician: Tanner Barron MD History of Present Illness Mr. Alanis is a 53 year old male with a history of Hypertension, ADD, Low Back Pain, Sinus Tachycardia, PVC's, Asthma, and Allergic Rhinitis who presented to his PCP and was diagnosed with Pneumonia and was started on antibiotics and a steroid. Patient admitted to the onset of exertional dyspnea dating back to February or March of 2024 when he also had decreased exertional tolerance. His exertional dyspnea progressed to the point that he was having occasional SOB at rest, and eventually developed orthopnea and PND. His symptoms all worsened over the past couple of weeks with his current respiratory tract infection. He has experienced chest soreness which he attributes to the increased work of breathing, however he has not had any exertional chest pain, heaviness, tightness, or pressure. He denies any exertional neck, jaw, back, or arm pain. His dyspnea is currently much improved from the time of admission. He is now able to lie down to sleep and has not had any further heart failure symptoms. He does admit to occasional palpitations but denies any consistently elevated heart rates. He denies any syncope or near-syncope. His BNP was elevated at 567 pg/mL. Chest CT consistent with pulmonary edema and small pleural effusions. Echocardiogram shows normal markedly diminished LV systolic function, LVEF 20% to 25%, septal motion consistent with IVCD, moderate mitral regurgitation, severe left atrial enlargement, grade 2 LV diastolic dysfunction. Allergies Allergy/AdvReac Type Severity Reaction Status Date / Time erythromycin base Allergy Unknown SEVERE Verified 05/29/24 10:55 DIARRHEA AND UPSET STOMACH morphine Allergy Unknown SEVERE N/V Verified 05/29/24 10:55 amlodipine AdvReac Severe Panic and Verified 05/29/24 10:55 forgetfulness amoxicillin AdvReac Mild Nausea Verified 05/29/24 10:55 Home Medications Medication Instructions Recorded Confirmed Type multivitamin (Daily Multi-Vitamin 1 tab PO DAILY 08/10/18 06/03/24 History tablet) fexofenadine 180 mg tablet 180 mg PO DAILY Allergic Rhinitis 06/03/20 06/03/24 Rx #90 tabs olmesartan 20 mg tablet 20 mg PO QAM 02/15/24 06/03/24 History albuterol sulfate 90 mcg/actuation See Rx Instructions inhalation 04/29/24 06/03/24 Rx aerosol inhaler .COMPLEX PRN shortness of breath or wheezing #18 grams dextroamphetamine-amphetamine 10 10 mg PO BID #60 tabs 04/29/24 06/03/24 Rx mg tablet fluticasone propionate 50 1 - 2 spray intranasal DAILY PRN 04/29/24 06/03/24 Rx mcg/actuation nasal nasal congestion #16 grams spray,suspension hydrocodone 10 mg-acetaminophen 1 tab PO Q12H PRN Chest wall pain 04/29/24 06/03/24 Rx 325 mg tablet #60 tabs azithromycin 250 mg tablet See Rx Instructions PO .COMPLEX #6 05/29/24 06/03/24 Rx tabs cefpodoxime 200 mg tablet 200 mg PO Q12H 10 days #20 tabs 05/29/24 06/03/24 Rx prednisone 10 mg tablet See Rx Instructions PO DAILY #40 05/29/24 06/03/24 Rx tabs cyclobenzaprine 10 mg tablet 10 mg PO UD PRN Pain 06/03/24 06/03/24 History Patient History Medical History History of tachycardia Hx of diverticulitis of colon Hx of migraines History of COVID-19 2021 ADD (attention deficit disorder) Depression with anxiety denies Asthma uses more with cold weather Hypertension Hx of vertigo Lumbar disc disease Surgical History History of colonoscopy History of esophagogastroduodenoscopy (EGD) Hx of 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 >[facility] [place] > 2005 > still has residual pain in that area as result > no chemo History of incision and drainage right knee S/P wisdom tooth extraction Family History Uncle Prostate cancer Mother Fibromyalgia Father Smoker Kidney disease Denies family history of Ovarian cancer Myocardial infarction Breast cancer Colorectal cancer Social History Smoking Status: Current every day smoker Tobacco Type: Cigarettes Age Started Using Tobacco: 22; packs per day: 0.5; Cigarettes Per Day: 2; Second Hand Exposure: No; Do You Dip or Chew Tobacco: No; Hx Alcohol Use: Yes Alcohol type: hard liquor Hx Substance Use: No Preferred Language: [place] Communication Ability: Effective Visual Impairment: No Limitations Hearing Ability: Normal Office Aide Required: No Beliefs That Will Affect Care: None marital status: Current Living Situation: Spouse current occupational status: employed 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 Physical Exam Physical Exam: Blood pressure is 107/72, pulse is 94 and regular with occasional ectopy. GENERAL: Patient in no acute distress. Patient lying flat in his bed. HEENT: Head is atraumatic, normocephalic. EOM's intact. Facies symmetric. No perioral cyanosis. NECK: No JVD. JVP is not elevated. Carotid upstrokes are + 2 bilaterally without bruits. CHEST/LUNGS: Faint bibasilar crackles. CVS: S1 and S2 are regular with a grade 1/6 apical holosystolic murmur. No gallops or rubs. PMI is nondisplaced. No lifts, heaves, or thrills. No abdominal aortic or renal bruits. ABDOMINAL EXAM: Bowel sounds are present. EXTREMITIES: No clubbing or cyanosis. No edema. Extremities are well perfused. NEUROLOGIC EXAM: Patient is awake, alert, and oriented. Pleasant and cooperative. Answers questions appropriately. Speech is clear. Results & Data Vital Signs (Past 12 Hours) Vital Signs Temp Pulse Pulse Resp BP BP Pulse Ox 06/04/24 10:51 36.3 C L 94 H 20 107/72 95 06/04/24 10:11 104 H 06/04/24 07:15 36.5 C 94 H 20 134/73 94 06/04/24 02:47 36.8 C 108 H 18 123/77 96 O2 Del Method 06/04/24 10:51 Room Air 06/04/24 10:11 06/04/24 07:15 Room Air 06/04/24 02:47 Room Air PG Care Time/CCT Total # of Minutes Spent Total Time Spent with Patient: Total time spent is greater than 50% in coordination of care (as documented) at patient's floor/unit and/or counseling patient:48 [place] [address] IN/OBS CONSULT LVL 5,80M Patient Type New Medical Decision Making High Complexity Diagnoses Cardiomyopathy, unspecified type I42.9 Cardiomyopathy type: unspecified Acute on chronic systolic CHF (congestive heart failure) I50.23 Pleural effusion J90 Sinus tachycardia R00.0 Primary hypertension I10 Hypertension type: primary hypertension Time Spent (min) 82 (1) Cardiomyopathy Cardiomyopathy type: unspecified Qualified Code(s): I42.9 - Cardiomyopathy, unspecified (5) Hypertension Hypertension type: primary hypertension Qualified Code(s): I10 - Essential (primary) hypertension
[2024-06-04] MEDS: METOPROLOL TARTRATE 50 MG TAB PO SCH (21:01)
[2024-06-05 07:18] LABS: Hematocrit (blood only) 52.8 % (42.0-52.0); Hemoglobin 18.1 g/dl (14.0-18.0); Mean Corpuscular Hemoglobin 29.9 pg (25.0-34.0); Mean Corpuscular Hgb Conc 34.3 g/dL (32.0-36.0); Mean Corpuscular Volume 87.1 fL (80.0-100.0); Mean Platelet Volume 11.5 fL (9.4-12.4); Platelet Count 274 K/uL (130-400); RDW Coefficient of Variation 13.1 % (11.5-14.5); RDW Standard Deviation 41.7 fL (36.4-46.3); Red Blood Count 6.06 M/uL (4.70-6.10); White Blood Count 9.72 K/ul (4.8-10.8)
[2024-06-05 07:39] LABS: BUN Creatinine Ratio 24.8 (10-20); Calcium 8.7 mg/dl (8.6-10.3)
[2024-06-05] MEDS ORDERED: FUROSEMIDE 40 MG/4 ML VIAL IV SCH (09:00)
[2024-06-05] MEDS ORDERED: METOPROLOL TARTRATE 25 MG TAB PO SCH (09:00)
--- NOTE | 2024-06-05 09:44 | Pre Anesthesia Assessment ---
Date of Service June 05, 2024 Pre Sedation Assessment Vital Signs Temp Pulse Pulse Resp BP BP Pulse Ox 06/05/24 08:05 75 14 103/67 97 06/05/24 07:30 78 06/05/24 07:17 36.4 C L 54 L 20 100/69 91 06/05/24 03:03 36.8 C 62 17 102/72 92 06/04/24 23:00 36.9 C 66 19 104/73 94 06/04/24 19:14 36.9 C 96 H 17 102/70 92 06/04/24 15:42 95 H 06/04/24 15:26 36.3 C L 68 20 128/70 96 06/04/24 10:51 36.3 C L 94 H 20 107/72 95 06/04/24 10:11 104 H O2 Del Method 06/05/24 08:05 Room Air 06/05/24 07:30 06/05/24 07:17 Room Air 06/05/24 03:03 Room Air 06/04/24 23:00 Room Air 06/04/24 19:14 Room Air 06/04/24 15:42 06/04/24 15:26 Room Air 06/04/24 10:51 Room Air 06/04/24 10:11 Cardiovascular RRR, no murmur, no edema Respiratory normal respiratory effort, lungs clear to auscultation Pre-Sedation Airway Assessment Smoking Status: Current every day smoker Hx Sleep Apnea: No Short, Thick Neck: Yes Thyromental Distance: > or= 3.5 Finger Breadths Oral Cavity: + Dental Abnormalities Mallampati Class: III ASA: ASA3 NPO Status Date of Last Intake of Fluids: 06/04/24 Time of Last Intake of Fluids: 18:00 Date of Last Intake of Solid Food: 06/04/24 Time of Last Intake of Solid Foods: 18:00 Notes The planned sedation has been discussed with the patient. Informed Consent was obtained. I have identified the patient, determined the appropriateness of sedation and have assessed the patient immediately prior to the procedure. All medicine(s) and interventions are by my order.
[2024-06-05] MEDS: niCARdipine 2,000 MCG/20 ML SYR ONE (09:51)
[2024-06-05] MEDS: NITROGLYCERIN/D5W 100MCG/ML 20ML SYR ONE (09:51)
[2024-06-05] MEDS: fentaNYL citrate PF 100 MCG/2 ML VIAL ONE (10:09)
[2024-06-05] MEDS: OPTIRAY 350 ONE (10:10)
[2024-06-05] MEDS: MIDAZOLAM HCL 1 MG/ML 2ML VIAL ONE (10:10)
[2024-06-05] MEDS: HEPARIN (PORCINE) 1000 UNIT/ML 10 ML (CATH LAB USE ONLY) ONE (10:10)
--- NOTE | 2024-06-05 10:18 | Post Anesthesia Assessment ---
Date of Service June 05, 2024 Post Sedation Assessment Vital Signs Temp Pulse Pulse Resp BP BP Pulse Ox 06/05/24 08:05 75 14 103/67 97 06/05/24 07:30 78 06/05/24 07:17 36.4 C L 54 L 20 100/69 91 06/05/24 03:03 36.8 C 62 17 102/72 92 06/04/24 23:00 36.9 C 66 19 104/73 94 06/04/24 19:14 36.9 C 96 H 17 102/70 92 06/04/24 15:42 95 H 06/04/24 15:26 36.3 C L 68 20 128/70 96 06/04/24 10:51 36.3 C L 94 H 20 107/72 95 O2 Del Method 06/05/24 08:05 Room Air 06/05/24 07:30 06/05/24 07:17 Room Air 06/05/24 03:03 Room Air 06/04/24 23:00 Room Air 06/04/24 19:14 Room Air 06/04/24 15:42 06/04/24 15:26 Room Air 06/04/24 10:51 Room Air Recovery Score Activity: Moves 4 extremities Respiration: Deep Breath/Cough Circulation: +/-20% PreAnes Value Consciousness: Fully Awake Oxygen Saturation: > 92% On Room Air Discharge Sedation Level of Care: Fast Track Phase II Post Sedation Plan On clinical assessment, the patient appears to have tolerated the sedation without complications. Patient is recovering as anticipated. Patient will continue to be monitored by nursing and may be discharged when sedation discharge criteria are met per below protocol. Upon Completions of procedure up to 15 minutes continue every 5 minute vital signs and the P.A.R. score; then discharge to a Phase I or Fast Track to Phase II per the following guidelines: * Discharge Patient to appropriate Phase II area if PAR is 8 or greater or return to pre- procedure baseline. The post - procedure orders will be as d irected. * If PAR score is less than 8 or not return to pre-procedure baseline then patient will follow Phase I monitoring till PAR is reached for Phase II. The Phase I may be done in procedure room or may call to secure a Phase I area. * If naloxone or flumazenil are used for reversal, hold in Phase I for continued monitoring from when last reversal dose was given for a minimum of 60 minutes or longer pending the nurse and/or physician discretion of patient condition before discharge to Phase II. Please call the Sedation Physician to re-evaluate and complete post-note for discharge to Phase II area. Do NOT discharge from procedure sedation or Phase 1 until post- sedation evaluation note is complete by procedure /sedation MD Sedation Discharge Instructions to be given to the patient at discharge to home.
--- NOTE | 2024-06-05 11:01 | Cardiac Catheterization ---
[facility] Data: Alarm Mechanism Adjuster Cardiac Status Clinical evaluation leading to the procedure CAD Presenation: Sx unlikely to be ischemic Anginal Classification: CCS IV (Dyspnea) Heart Failure: NYHA Class: CCS IV Cardiogenic Shock within 24 Hours: No Cardiac Arrest within 24 Hours: No Imaging Studies Past 6 Months: Yes Stress Studies Past 6 Months: No Coronary Anatomy Dominant: Right Left Main (% Stenosis): Normal LAD (% Stenosis): Normal D1 (% Stenosis): Normal Circumflex (% Stenosis): Normal OM1 (% Stenosis): Normal L PL1 (% Stenosis): Normal RCA (% Stenosis): Normal R PDA (% Stenosis): Normal R PL1 (% Stenosis): Normal Ramus (% Stenosis): Normal Diagnostic Physicians Name: Tanner Barron MD, PhD Closure Device Percutaneous Entry Location: Radial Closure Device: Radial Band Recommendations: Medical Therapy and/or Counseling Cardiac Cath Procedure Full Procedure Date June 05, 2024 Pre-Procedure Diagnosis Pre-Procedure Diagnosis: Cardiomyopathy AUC Score AUC Score: 09 Post-Procedure Diagnosis Post-Procedure Diagnosis: Normal Coronary Arteries Procedure(s) Performed Procedure(s) Performed: LV Angiography Flower Picker Tanner Barron MD, PhD Estimated Blood Loss Estimated Blood Loss: 3 cc Medication(s) Medication(s): Fentanyl, Heparin, Lidocaine 1%, Nicardipine, Nitroglycerin and Versed Summary of Findings Brief description: Patient was brought to the cardiac catheterization suite where he was shaved and prepped in a sterile fashion. Sedated using IV Versed and fentanyl. Soft tissues of the right wrist were anesthetized using 2 mL of 1% Xylocaine. The right radial artery was accessed using a modified Seldinger technique and a 6 Belgian radial artery glide sheath was placed. Patient was provided anticoagulation with IV heparin and antispasmodics including nicardipine and nitroglycerin. All catheters were advanced and exchanged over a 0.035 J-tip wire. Left coronary angiography in orthogonal views with a 5 Belgian Raven 4 diagnostic catheter. Right coronary angiography in orthogonal views with a 5 Belgian Raven 4 diagnostic catheter. All catheters were removed. Radial artery sheath was removed. Hemostasis was obtained using the TR band. Patient was hemodynamically stable and asymptomatic. He was returned to the recovery area. This ended the case. Coronary angiography findings: BDS-huayp-ralaqdr vessel trifurcating into LAD, circumflex, and ramus. No disease. DPI-xxcon-jokrrjv and transapical. Provides a large septal branch and then a very large multi branching first diagonal. Proximal LAD has mild luminal irregularities. The remainder of the LAD and its branches have no angiographically evident disease. LCx-this is large caliber and nondominant. Travels in the AV groove giving a large branching OM1 followed by a large atrial branch, and then terminating distally as a medium caliber posterolateral. There is no angiographically evident disease in the circumflex or its branches. Ramus-this is small caliber without disease. FIE-xyanm-ddlwser and dominant vessel. Bifurcates distally into a large PDA and a large posterolateral. There is no angiographically evident disease in the RCA or its branches. Summary: 1. Normal epicardial coronary arteries. By definition his cardiomyopathy is therefore nonischemic. 2. Continue optimize medical therapy for chronic heart failure and cardiomyopathy. 3. Strongly encouraged the patient to wear the LifeVest which was recommended. Hemodynamics Rest Ao:: 95/78 mmHg Final Ao: 106/78 mmHg LV: Not performed Recommendations Recommendations: Medical Therapy and/or Counseling Radiation Exposure (mGy) 501 mGy, fluoroscopy time 2.2 minutes Contrast (mls) 40 cc Anesthesia 1 mg Versed, 25 mcg fentanyl IV. Start 1002, end 1010 Procedural Complication(s) None Disposition Alarm Mechanism Adjuster Holding/Recovery I attest to the content of the Intraoperative Record and any orders documented therein. Any exceptions are noted below. [facility] Card Cath Procedure Codes Cardiac Catheterization Procedure 1: Cardiovascular Cath Procedures: 48658 Coronaries Moderate Sedation Procedure 1: Sedation/Anesthesia: 95895 Mod Sedation by the same physician;Init15 Min Child Age 5 & Up (Start time 1002, end time 1010) PG Care Time/CCT Total # of Minutes Spent Total Time Spent with Patient: Total time spent is greater than 50% in coordination of care (as documented) at patient's floor/unit and/or counseling patient:
--- NOTE | 2024-06-05 11:19 | Cardiology Progress Note ---
Date of Service June 05, 2024 Assessment & Plan (1) Acute on chronic systolic CHF (congestive heart failure): Plan: He appears to be near euvolemic at this time. I would change his Lasix over to 40 mg p.o. once daily. I would also add low-dose potassium supplementation such as K-Dur 10 mEq daily. (2) Cardiomyopathy: Plan: Patient has nonischemic cardiomyopathy. Agree with Entresto 26/24 mg p.o. twice daily. Would change his metoprolol to tartrate to metoprolol succinate ER. 50 mg daily should be appropriate and for the most part his blood pressure has tolerated total daily dose of 50 mg. Highly recommended that he wears the defibrillator vest for 3 to 4 months. We we will reassess his EF after 3 months of medical therapy. He may return to work next week on 06/10/2024. Patient will need to be seen in the cardiology office within 1 to 2 weeks of discharge. We will also consider the addition of SGLT2 inhibitor as an outpatient. His olmesartan will be discontinued in favor of the Entresto. (3) Hypertension: Plan: Blood pressure is controlled to slightly low. He does not have any symptoms with that. Keeping his Entresto dose and changing his metoprolol to metoprolol succinate ER. Does not appear to need any more diuresis so the low-dose Lasix with potassium supplementation will be continued but we will reassess as an outpatient. Plan Pneumonia treatment per primary team. From a cardiac standpoint the patient will be appropriate for discharge today once his LifeVest has been fitted. He also needs to complete his postcatheterization bed rest protocol. Post-cath instructions have been provided in the discharge instructions. Admission and Anticipated Discharge Date Admission Date: June 03, 2024 Subjective Patient was seen today in the cardiac cath holding area. This was pre and post catheterization. He denies any chest pains, heaviness, or tightness. No dyspnea. Patient underwent cardiac catheterization revealing normal coronary arteries. No pain post catheterization. He had a radial artery band in place. He has his significant other with him. He would like to return to work this coming Monday which I stated would be reasonable. He will need to follow the physical activity limitations as provided at discharge with regard to his radial access site. He is willing to wear the "LifeVest". Will await placement today. His job is not very physical. Review of Systems Review of Systems: Negative except as per HPI Physical Exam Neck: No JVD Respiratory: Clear to auscultation bilaterally. No wheezing, rhonchi, or rales appreciated today. Cardiovascular: Slightly tachycardic. Regular. No murmur. Good distal pulses. Musculoskeletal: no cyanosis or clubbing, extremities motor strength 5/5 Neurologic: Cognition is intact. Speech is fluent. No focal deficits. Psychiatric: A+Ox3, euthymic affect Results & Data Vital Signs (Past 12 Hours) Vital Signs Temp Pulse Pulse Pulse Resp BP Pulse Ox 06/05/24 10:48 36.4 C L 84 18 94/51 L 96 06/05/24 10:35 77 16 102/60 93 06/05/24 10:20 43 L 16 118/91 93 06/05/24 08:05 75 14 103/67 97 06/05/24 07:30 78 06/05/24 07:17 36.4 C L 54 L 20 100/69 91 06/05/24 03:03 36.8 C 62 17 102/72 92 O2 Del Method 06/05/24 10:48 Room Air 06/05/24 10:35 Room Air 06/05/24 10:20 Room Air 06/05/24 08:05 Room Air 06/05/24 07:30 06/05/24 07:17 Room Air 06/05/24 03:03 Room Air Diagnostic Findings Normal coronary arteries Severely reduced EF (20 to 25%) PG Care Time/CCT Total # of Minutes Spent Total Time Spent with Patient: Total time spent is greater than 50% in coordination of care (as documented) at patient's floor/unit and/or counseling patient: Coding Level of Care Code 45008 SUB INP/OBS CARE 235MIN Diagnoses Acute on chronic systolic CHF (congestive heart failure) I50.23 Cardiomyopathy, unspecified type I42.9 Cardiomyopathy type: unspecified Primary hypertension I10 Hypertension type: primary hypertension (2) Cardiomyopathy Cardiomyopathy type: unspecified Qualified Code(s): I42.9 - Cardiomyopathy, unspecified (3) Hypertension Hypertension type: primary hypertension Qualified Code(s): I10 - Essential (primary) hypertension
[2024-06-05 12:08] VITALS: O2SAT 96
[2024-06-05 13:08] VITALS: RESP 20; TEMP 98.1
[2024-06-05 14:01] VITALS: BP 128/70; PULSE 98
--- NOTE | 2024-06-05 17:29 | Discharge Summary ---
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, started on GBMT metoprolol and Entresto plus lasix at discharge # Pneumonia, pt will be on ceftriaxone and doxycycline, negative respiratory biofire, blood cultures negative will have home on doxycycline # Chronic back pain and somatization disorder, will continue Hydrocortisone, a lot of his pain came about from his car and drove sarcoma treatment which was with removal of subcostal cartilage in his chest and subsequently persistent pain since that time Notes For Next Care Provider pt will need meds titrated, attempted to educate on diet and eval body weight, pt will need more education Admission HPI Per Admitting Provider 53-year-old male that smokes presents ER for worsening cold symptoms and shortness of breath who was diagnosed with pneumonia 1 week ago by the PCP. He was originally placed on Zithromax and switched to cefpodoxime and prednisone. Patient states his breathing is getting worse which prompted him to come the ER. No documented temperature. He has an abnormal CT scan presentation consistent with infectious etiology of the lung BioFire test is negative Patient states has been short of breath for few months perhaps dating back to March. Patient started a new job in February. Patient also has a history of smoking but stopped smoking in February when he got his new job. Patient denies any direct coupling of his shortness of breath with some chest discomforts which he describes as a pounding in his chest. He has had no nausea he has had diaphoresis which he feels has been over the last 2 days and associated with more infectious symptoms such as production of sputum. He has had no lower extremity edema does not have significant orthopnea Discharge Exam lungs are clear, cardiac is regular right wrist is with good distal pulses and sensation Discharge Plan Discharge Items Patient Disposition: Home - Self-Care Reason For Visit: PNEUMONIA, SHORTNESS OF BREATH Discharge Diagnosis: Nonischemic cardiomyopathy Condition on Discharge: Good Activity: Per Instructions section Non-emergency contact: Primary Care Provider and Subassembly Supervisor Call non-emergency contact if: you have any medication questions, your symptoms worsen, your pain is not controlled, you have a fever, your wound has increased redness and your wound has increased drainage Follow-up/Referrals: Bhargav Mcmillan, [Primary Care Provider] - Diet: Low Potassium (2gm) Addtl Attending Provider Instructions: ACTIVITY RECOMMENDATIONS: Excess manipulation of the wrist should be avoided for the next 24-48 hours. * No lifting over 2 pounds (approximately a 1/2 gallon of milk) with the utilized arm for 24 hours. * No strenuous activity such as bowling or tennis for 3 days. * Keep the site of the procedure covered with a bandage for 24 hours. *You may shower the day after the procedure. Do not take a tub bath or submerge the puncture site in water for the next 3 days. *Do not operate any motorized equipment for 3 days. SPECIAL CARE INSTRUCTIONS: The site may be slightly bruised and sore following your procedure. Should any of the following occur, contact the Dr. who performed your procedure. 1. Redness/inflammation, swelling, chills, or fever, or colored drainage at procedure site within 3-7 days after your procedure. 2. Coldness, discoloration, ongoing numbness, severe pain, or swelling. Expect mild tingling of hand and tenderness at the puncture site for up to three days. If this persists beyond three days, or other symptoms develop, notify the Dr. who performed your procedure. BLEEDING: If the procedure site on your wrist begins to bleed, do not panic 1. Place 1 or 2 fingers firmly just slightly above the insertion site to stop the bleeding. You may be able to feel your pulse as you hold pressure. 2. Lift your finger after 5 minutes to see if the bleeding has stopped. 3. Once the bleeding has stopped, gently wipe the wrist area clean with a bandage. * If the bleeding from your wrist does not stop after 10 minutes, or if there is a large amount of bleeding or spurting, call 911 (do not drive yourself to the hospital). SKIN IRRITATION: * You may experience some redness and/or swelling in the area where radiation was administered. If any skin irritation occurs, please contact your family physician. FOLLOW UP VISIT: Keep any scheduled doctor appointments. Pending Studies at Discharge: No Stand-Alone Forms: [facility], Smoking Cessation Medications and DC Order Prescriptions: New furosemide 40 mg Tablet 40 mg PO QAM Qty: 30 3RF metoprolol succinate 50 mg Tablet Extended Release 24 Hr 50 mg PO QAM Qty: 30 3RF potassium chloride 10 mEq Tablet Extended Release 10 meq PO DAILY Qty: 30 0RF Entresto 24-26 mg Tablet 1 tab PO BID Qty: 60 3RF doxycycline hyclate 100 mg capsule 100 mg PO DAILY Qty: 7 0RF Continued fluticasone propionate 50 mcg/actuation spray,suspension 1 - 2 spray intranasal DAILY PRN (Reason: nasal congestion) Qty: 16 0RF albuterol sulfate 90 mcg/actuation HFA aerosol inhaler See Rx Instructions INH .COMPLEX PRN (Reason: shortness of breath or wheezing) Qty: 18 1RF Rx Instructions: 1-2 puffs inhalation Q 4-6 hrs PRN; hydrocodone-acetaminophen 10-325 mg tablet 1 tab PO Q12H PRN (Reason: Chest wall pain) Qty: 60 0RF Rx Instructions: last filled 04/29 30 day supply dextroamphetamine-amphetamine 10 mg tablet 10 mg PO BID Qty: 60 0RF Rx Instructions: last filled 04/29 30 day supply multivitamin [Daily Multi-Vitamin] tablet 1 tab PO DAILY Rx Instructions: otc unable to verify fexofenadine 180 mg tablet 180 mg PO DAILY Qty: 90 1RF Rx Instructions: otc unable to verify olmesartan 20 mg tablet 20 mg PO QAM Rx Instructions: 20 mg po qam. 06/03- No fill history available unable to verify cyclobenzaprine 10 mg tablet 10 mg PO UD PRN (Reason: Pain) Rx Instructions: TAKE 1 TABLET BY MOUTH THREE TIMES DAILY NEEDED for chest wall pain 06/03- No fill history available unable to verify Discontinued azithromycin 250 mg tablet See Rx Instructions PO .COMPLEX Qty: 6 0RF Rx Instructions: For 250 mg dose pack: take 500 mg today (day 1), then 250 mg for 4 days (days 2-5) PO prednisone 10 mg tablet See Rx Instructions PO DAILY Qty: 40 0RF Rx Instructions: 4 tabs for 4 days, then 3 tabs for 4 days, then 2 tabs for 4 days, then 1 tab for 4 days. PO DAILY; cefpodoxime 200 mg tablet 200 mg PO Q12H 10 Days Qty: 20 0RF Rx Instructions: must administer with a meal/food Discharge Orders: Discharge Order (Routine); Ordered 06/05/24 Ordered By: Jonathan Ring Admission Data Admit Date/Time: 06/03/24 08:21 Attending Provider: Jonathan Ring Admit Provider: Jonathan Ring Primary Care Provider: Bhargav Mcmillan Other Providers: Aster Bonilla; Tanner Barron Other Interventions: Discharge Summary Assessment (RN) Last Done: 06/05/24 14:00 Hospital Stay Data Consultations 06/03/24 06:49 ED Decision to Admit Stat 06/04/24 07:42 Consult Cardiology Routine Procedures Performed Operation Date: 06/05/24 09:30 Actual Procedures p Cineradiography w/Routine Exam - Tanner Barron MD, PhD s Cath, Coronaries ONLY (no LV) - Tanner Barron MD, PhD Diagnostic Imagining Performed 06/03/24 05:10 CT angio chest PE protocol Stat 06/05/24 05:54 CL Cath Imgs for PACS use only Routine Pending Results Patient Have Any Pending Studies at Discharge: No Discharge Instructions Given to Patient (Per Discharging Provider) ACTIVITY RECOMMENDATIONS: Excess manipulation of the wrist should be avoided for the next 24-48 hours. * No lifting over 2 pounds (approximately a 1/2 gallon of milk) with the utiliz ed arm for 24 hours. * No strenuous activity such as bowling or tennis for 3 days. * Keep the site of the procedure covered with a bandage for 24 hours. *You may shower the day after the procedure. Do not take a tub bath or submerge the puncture site in water for the next 3 days. *Do not operate any motorized equipment for 3 days. SPECIAL CARE INSTRUCTIONS: The site may be slightly bruised and sore following your procedure. Should any of the following occur, contact the DrJordyn who performed your procedure. 1. Redness/inflammation, swelling, chills, or fever, or colored drainage at procedure site within 3-7 days after your procedure. 2. Coldness, discoloration, ongoing numbness, severe pain, or swelling. Expect mild tingling of hand and tenderness at the puncture site for up to three days. If this persists beyond three days, or other symptoms develop, notify the Dr. who performed your procedure. BLEEDING: If the procedure site on your wrist begins to bleed, do not panic 1. Place 1 or 2 fingers firmly just slightly above the insertion site to stop the bleeding. You may be able to feel your pulse as you hold pressure. 2. Lift your finger after 5 minutes to see if the bleeding has stopped. 3. Once the bleeding has stopped, gently wipe the wrist area clean with a bandage. * If the bleeding from your wrist does not stop after 10 minutes, or if there is a large amount of bleeding or spurting, call 911 (do not drive yourself to the hospital). SKIN IRRITATION: * You may experience some redness and/or swelling in the area where radiation was administered. If any skin irritation occurs, please contact your family physician. FOLLOW UP VISIT: Keep any scheduled doctor appointments. Total Time Total Time Spent Total Time Spent (In Minutes): greater than 30 minutes were required to complete Coding Level of Care Code 05245 INP/OBS DISCH >30 MIN Diagnoses Pneumonia J18.9 Acute heart failure I50.9 Heart failure type: unspecified Chronic low back pain M54.5; G89.29 Attention deficit hyperactivity disorder (ADHD), combined type F90.2 Hyperactivity presence: present Attention deficit-hyperactivity disorder type: combined inattentive- hyperactive
--- NOTE | 2024-06-06 08:51 | Electrocardiogram Report ---
Test Reason : Blood Pressure : */* mmHG Vent. Rate : 105 BPM Atrial Rate : 105 BPM P-R Int : 130 ms QRS Dur : 86 ms QT Int : 366 ms P-R-T Axes : 47 -31 77 degrees QTcB Int : 483 ms Sinus tachycardia with occasional Premature ventricular complexes Possible Left atrial enlargement Left axis deviation Septal infarct , age undetermined Abnormal ECG No previous ECGs available Confirmed by Tanner Barron ([id number]) on 06/06/2024 8:51:36 AM Referred By: REFERRED SELF Confirmed By: Tanner Barron
--- NOTE | 2024-06-06 08:54 | Electrocardiogram Report ---
Test Reason : Blood Pressure : */* mmHG Vent. Rate : 97 BPM Atrial Rate : 97 BPM P-R Int : 124 ms QRS Dur : 86 ms QT Int : 378 ms P-R-T Axes : 50 -38 76 degrees QTcB Int : 480 ms Sinus rhythm with frequent Premature ventricular complexes Possible Left atrial enlargement Left axis deviation Minimal voltage criteria for LVH, may be normal variant ( R in aVL ) Septal infarct (cited on or before 03-Jun-2024) Abnormal ECG When compared with ECG of 03-Jun-2024 05:17, (unconfirmed) No significant change was found Confirmed by Tanner Barron ([id number]) on 06/06/2024 8:54:29 AM Referred By: REFERRED SELF Confirmed By: Tanner Barron
[2024-06-06] MEDS ORDERED: POTASSIUM CHLORIDE 10 MEQ TABCR PO SCH (09:00)
[2024-06-06] MEDS ORDERED: METOPROLOL SUCC 50MG EXT REL TAB PO SCH (09:00)
[2024-06-06] MEDS ORDERED: FUROSEMIDE 40 MG TAB PO SCH (09:00)
== END 2024-06-05 14:28 | disposition home or self-care (01) | DRG 286 ==
LOC: SUATTDRO → ED 04:52 → 2S 08:21
PROC: CLB.CCO (2024-06-05 09:30)